=== PATIENT | male | born 1980 | race Caucasian/White ===

== ENCOUNTER 2021-05-09 17:22 | Emergency (ER) | payer OTHER ==
[~2021-05-09] VITALS: Ht 182.9 cm; Wt 89.6 kg
[2021-05-09] MEDS ORDERED: ZYRTEC ALLERGY10 MG PO (17:46)
[2021-05-09] MEDS ORDERED: FLONASE ALLERG9.9 ML NS (17:47)
[2021-05-09] MEDS ORDERED: PROAIR HFA0.09 MG/AC IH ×2 (17:47→20:28)
[2021-05-09] MEDS ORDERED: ADVAIR DISKUS1 DSK IH (17:47)
[2021-05-09 18:14] LABS: HEMATOCRIT 43.5 % (42.0-52.0); HEMOGLOBIN 14.9 g/dL (13.5-18.0); LYMPH# 0.81 K/mm3 (1.50-4.00); MEAN CELL VOLUME 91 fl (78-100); MEAN CORPUSCULAR HEMOGLOBIN 31 pg (27-31); MEAN CORPUSCULAR HGB CONC 34 g/dL (33-37); MEAN PLATELET VOLUME 10.8 fl (7.4-10.4); MONO # 0.42 K/mm3 (0.20-0.80); NEU # 4.73 K/mm3 (1.40-6.50); PLATELET COUNT 171 K/mm3 (130-400); RED BLOOD COUNT 4.79 M/mm3 (4.20-5.60); RED CELL DISTRIBUTION WIDTH 11.7 % (11.5-14.5)
[2021-05-09 18:24] LABS: ALBUMIN 3.7 g/dL (3.5-5.0)
[2021-05-09 18:25] LABS: SODIUM 135 mmol/L (136-145)
[2021-05-09 18:26] LABS: CALCIUM 8.4 mg/dL (8.3-10.5)
[2021-05-09 18:27] LABS: GLUCOSE 116 mg/dL (75-110); TOTAL PROTEIN 6.6 g/dL (6.4-8.3)
[2021-05-09 18:28] LABS: CARBON DIOXIDE 26 mmol/L (22-29)
[2021-05-09 18:29] LABS: TOTAL BILIRUBIN 0.6 mg/dL (0.2-1.2)
[2021-05-09 18:32] LABS: AST-SGOT 41 U/L (5-34)
[2021-05-09 18:33] LABS: ALT/SGPT 18 U/L (0-55)
[2021-05-09 18:34] LABS: D-DIMER 1.22 mg/L FEU (0.15-0.50)
[2021-05-09 18:41] LABS: TROPONIN-I < 0.030 ng/mL (<0.030)
[2021-05-09] MEDS ORDERED: MORGIDOX 1X100100 MG PO (20:27)
[2021-05-09] MEDS ORDERED: PREDNISONE20 MG PO (20:27)
[2021-05-09 21:43] VITALS: BP 122/79
== END 2021-05-09 21:43 | disposition home or self-care (01) ==
LOC: ED 17:22
PROVIDERS: Nurse Practitioner
DX: U07.1 COVID-19 (principal); J12.82 Pneumonia due to coronavirus disease 2019; J45.909 Unspecified asthma, uncomplicated; Z79.899 Other long term (current) drug therapy; Z79.51 Long term (current) use of inhaled steroids
CPT/HCPCS: J2930; Q9967